=== PATIENT | female | born 1975 | race Caucasian/White ===

== ENCOUNTER → 2018-01-24 | Outpatient (CLI) | payer OTHER, MEDICARE ==
[~2018-01-24] MED LIST: AMITRIPTYLINE H50 M2 PO; BACTRIM DS TAB1 EACH PO; CALCIUM 500 WI1 EAC3 PO; CARAFATE 1 GM TA1 G1 PO; EFFEXOR XR150 MG PO; ERYTHROMYCIN PO; ERYTHROMYCIN250 MG PO; FORTEO SQ; HUMIRA40 MG/0.8 SQ; HYDROCODON-ACE1 EAC7 PO; IMITREX6 MG/0.5 M IM; MULTIVITAMINS; NEURONTIN800 MG; NORCO 5-325 TA1 EACH PO; PENTASA 250 MG PO; PEPCID40 MG PO; PERCOCET 5-3251 EACH PO; PREDNISONE PO; PROTONIX40 M2 PO; SOLU-CORTE100 MG/21 IJ; SOLU-CORTE100 MG/21 IM; TIZANIDINE HCL4 MG PO; ZANAFLEX4 M1 PO; ZOFRAN4 MG PO; ZOFRAN8 MG PO
--- NOTE | 2018-01-24 11:22 | NUR ---
ARRIVED AMBULATORY. MADE SELF COMFORTABLE IN RECLINER. PORT A CATH TO RIGHT CHEST FREE FROM SIGN OF INFECTION. PORT ACCESSED WITHOUT DIFFICULTY. GOOD BRISK BLOOD RETURN NOTED AND FLUSHED WITH EASE. PORT THEN DEACCESSED. TOLERATED WELL. DENIES NEEDS AT DISCHARGE.
== END ==
LOC: M.INFUS 11:00
DX: K50.90 Crohn's disease, unspecified, without complications (principal)

== ENCOUNTER → 2018-05-13 | Outpatient (CLI) | payer OTHER, MEDICARE | LOC: M.INFUS 00:55 | DX: Z45.2 Encounter for adjustment and management of vascular access device (principal) ==

== ENCOUNTER → 2018-11-25 | Outpatient (CLI) | payer BC, MEDICARE ==
--- NOTE | 2018-11-25 12:04 | NUR ---
ARRIVED AMBULATORY. PORT A CATH ACCESSED WITH OUT DIFFICULTY. GOOD BRISK BLOOD RETURN NOTED AND FLUSHED WITH EASE. PORT FLUSHED AND DEACCESSED. TOLERATED WELL.
== END ==
LOC: M.INFUS 11:30
DX: Z45.2 Encounter for adjustment and management of vascular access device (principal)

== ENCOUNTER 2019-12-02 21:01 | Emergency (ER) | payer BC, MEDICARE ==
[~2019-12-02] VITALS: Ht 144.8 cm; Wt 83.9 kg
[2019-12-02] MEDS ORDERED: TRAMADOL 50 MG50 MG PO (21:13)
[2019-12-02] MEDS ORDERED: ERYTHROMYCIN250 M1 PO (21:14)
[2019-12-02] MEDS ORDERED: VALACYCLOVIR500 MG PO (21:14)
[2019-12-02] MEDS ORDERED: LORAZEPAM 1 MG T1 MG PO (21:15)
[2019-12-02] MEDS ORDERED: DIAZEPAM 5 MG5 M1 PO (21:16)
[2019-12-02] MEDS ORDERED: [UNRECOGNIZED DRUG - CODE] (21:17)
[2019-12-02] MEDS ORDERED: METHOCARBAMOL500 M2 PO (21:18)
[2019-12-02] MEDS ORDERED: TYMLOS1.56 ML (21:19)
[2019-12-02] MEDS ORDERED: METFORMIN HCL500 M3 PO (21:19)
[2019-12-02] MEDS ORDERED: BACLOFEN 10MG T10 MG PO (21:20)
[2019-12-02] MEDS ORDERED: [UNRECOGNIZED DRUG - OTHER] (21:20)
[2019-12-02] MEDS ORDERED: LYRICA150 MG PO (21:20)
[2019-12-02] MEDS ORDERED: EZALLOR SPRINKL10 MG PO (21:21)
[2019-12-02 21:48] LABS: ABSOLUTE BASOPHILS 0.1 thou/uL (0.0-0.2); ABSOLUTE EOSINOPHILS 0.4 thou/uL (0.0-0.7); ABSOLUTE LYMPHOCYTES 4.7 thou/uL (0.8-5.3); ABSOLUTE MONOCYTES 0.8 thou/uL (0.0-1.2); ABSOLUTE NEUTROPHILS 5.7 thou/uL (1.6-8.1); BASOPHILS 0.8 %; EOSINOPHILS 3.6 %; HEMATOCRIT 38.8 % (37.0-47.0); HEMOGLOBIN 13.2 gm/dL (12.0-15.0); LYMPHOCYTES 40.4 %; MCH 31.5 pg (26.0-34.0); MCHC 33.9 g/dL (28.0-37.0); MCV 92.9 fL (80.0-100.0); MONOCYTES 6.5 %; NUCLEATED RBCS 0 /100WBC; PLATELET COUNT* 240 thou/uL (150-400); POLYS 48.7 %; RBC 4.17 mil/uL (4.20-5.00); RDW-CV 14.1 % (10.5-14.5); WBC 11.7 thou/uL (4.0-11.0)
[2019-12-02 21:57] LABS: CALCIUM 9.5 mg/dL (8.5-10.1); CREATININE 0.7 mg/dL (0.6-1.3); POTASSIUM 3.9 mmol/L (3.5-5.1)
[2019-12-02 22:04] LABS: APTT 24.1 Seconds (25.0-31.3)
[2019-12-02 22:11] LABS: ALBUMIN 3.9 g/dL (3.4-5.0); CK-MB MASS 0.7 ng/mL (<0.5-3.6); MAGNESIUM 1.7 mg/dL (1.8-2.4); TOTAL BILIRUBIN 0.1 mg/dL (<0.1-1.0); TOTAL PROTEIN 7.5 g/dL (6.4-8.2)
[2019-12-02 22:31] VITALS: BP 138/97
--- NOTE | 2019-12-03 15:02 | EKG ---
[place] [address] ELECTROCARDIOGRAM REPORT Name: KIESHA VALLELA Otoniel Room: [facility]#: [id number] Admission: 12/02/19 Attend Phys: Discharge: 12/02/19 Date of : 73 Report #: [id number] THIS REPORT FOR: //name// [facility] ED Test Date: 2019-12-02 Test Time: 21:05:00 Pat Name: MIKE VALLE Department: Room: Gender: F [employer]: SHERICE : 1975 Requested By: Chilo Norton Order Number: [id number] MD: Emigdio Harper Measurements Intervals [place] Rate: 89 P: 59 UT: 151 QRS: 24 QRSD: 93 T: 23 QT: 367 QTc: 447 Interpretive Statements Sinus rhythm Low voltage, precordial leads Borderline T abnormalities, anterior leads No previous ECG available for comparison Electronically Signed On 12-03-2019 15:01:25 [employer] by Emigdio Harper [email or web address] <ELECTRONICALLY SIGNED> By: Emigdio Harper MD, [facility] 12/03/19 1501 2105 2105 Emigdio Harper MD, FACC /EPI
== END 2019-12-02 22:38 | disposition home or self-care (01) ==
LOC: M.ERS 21:01
PROVIDERS: Family Medicine
DX: R07.89 Other chest pain (principal); I25.10 Atherosclerotic heart disease of native coronary artery without angina pectoris; Z88.0 Allergy status to penicillin; Z88.5 Allergy status to narcotic agent; Z88.1 Allergy status to other antibiotic agents; Z88.8 Allergy status to other drugs, medicaments and biological substances; Z90.49 Acquired absence of other specified parts of digestive tract; Z90.710 Acquired absence of both cervix and uterus

== ENCOUNTER → 2021-08-23 | Outpatient (CLI) | payer OTHER ==
[~2021-08-23] MED LIST changes: +BACLOFEN 10MG T10 MG PO; +DIAZEPAM 5 MG5 M1 PO; +ERYTHROMYCIN250 M1 PO; +EZALLOR SPRINKL10 MG PO; +LORAZEPAM 1 MG T1 MG PO; +LYRICA150 MG PO; +METFORMIN HCL500 M3 PO; +METHOCARBAMOL500 M2 PO; +TRAMADOL 50 MG50 MG PO; +TYMLOS1.56 ML; +VALACYCLOVIR500 MG PO; +[UNRECOGNIZED DRUG - CODE]; +[UNRECOGNIZED DRUG - OTHER]
== END ==
LOC: M.RAD 12:25
PROVIDERS: ATTEND Nurse Practitioner Family
DX: R05.9 Cough, unspecified (principal)